=== PATIENT | male | born 1995 | race African-American/Black ===

== ENCOUNTER 2017-01-28 20:09 | Emergency (ER) | payer OTHER, MEDICAID ==
[~2017-01-28] VITALS: Ht 172.7 cm; Wt 70.0 kg
[2017-01-28 23:33] VITALS: BP 107/68
== END 2017-01-29 | disposition left against medical advice (07) ==
LOC: ER 20:30
DX: Z53.21 Procedure and treatment not carried out due to patient leaving prior to being seen by health care provider (principal)